=== PATIENT | male | born 1965 | race Caucasian/White ===

== ENCOUNTER 2018-11-26 14:20 | Emergency (ER) | payer OTHER ==
[~2018-11-26] VITALS: Ht 177.8 cm; Wt 104.3 kg
--- NOTE | 2018-11-26 14:21 | NUR ---
PT BIBA BLS TO ER BED 04
[2018-11-26 14:27] VITALS: BP 119/65
--- NOTE | 2018-11-26 14:30 | NUR ---
53 y male brought in by ems c/o etoh. pt was picked up from work place and found by security laying on ground. no injury noted. no loc. heavy etoh on breath. pt admits to have had been drinking throughout the day. slurred speech. denies pain. [id number]. cant recall the time, month, or year. now at bedside. vss at this time. bed is down, locked, bed rail x 1, ermd to see pt. hx---dm, htn, hyperlipidemia, etoh rx---???
--- NOTE | 2018-11-26 14:30 | NUR ---
AT BEDSIDE FOR PT EVALUATION
[2018-11-26] MEDS ORDERED: NACL 0.9% 1,000 ML IV ONE ×2 (14:35→16:45)
--- NOTE | 2018-11-26 14:38 | NUR ---
pt gait impaired due to etoh, unsteady. pt given urinal for urine sample.
--- NOTE | 2018-11-26 14:43 | NUR ---
LAB AT BEDSIDE
[2018-11-26 14:52] LABS: BASOPHILS # (AUTO) 0.1 K/uL (0.00-0.22); BASOPHILS % (AUTO) 1.2 % (0.0-2.0); EOSINOPHILS # (AUTO) 0.5 K/uL (0-0.4); EOSINOPHILS % (AUTO) 4.2 % (0.0-4.0); HEMATOCRIT 35.4 % (36-52); HEMOGLOBIN 11.5 g/dL (12.0-18.0); LYMPHOCYTES # (AUTO) 2.3 K/uL (2.0-11.5); LYMPHOCYTES % (AUTO) 21.2 % (20.5-51.1); MEAN CORPUSCULAR HEMOGLOBIN 29 pg (27-31); MEAN CORPUSCULAR HGB CONC 32 g/dL (33-37); MEAN CORPUSCULAR VOLUME 88.9 fL (80-94); MONOCYTES # (AUTO) 0.5 K/uL (0.8-1.0); MONOCYTES % (AUTO) 4.9 % (1.7-9.3); NEUTROPHILS # (AUTO) 7.3 K/uL (1.8-7.7); NEUTROPHILS % (AUTO) 68.5 % (42.2-75.2); PLATELET COUNT (AUTO) 362 K/uL (140-450); RED BLOOD CELL COUNT(AUTO) 3.99 MIL/uL (4.20-6.10); RED CELL DISTRIBUTION WIDTH 13.9 % (11.6-13.7); WHITE BLOOD COUNT (AUTO) 10.7 K/uL (4.8-10.8)
--- NOTE | 2018-11-26 14:53 | NUR ---
PT UNABLE TO GIVE URINE AT THIS TIME
[2018-11-26 14:59] LABS: ANION GAP 15.9 (8-16); CARBON DIOXIDE 24.1 mmol/L (21-32); CREATININE 1.9 mg/dL (0.7-1.3)
[2018-11-26 15:06] LABS: ALBUMIN 4.1 g/dL (3.4-5.0); TOTAL BILIRUBIN 0.2 mg/dL (0.0-1.0)
--- NOTE | 2018-11-26 15:35 | NUR ---
PT STILL UNABLE TO GIVE URINE
[2018-11-26 15:50] LABS: PROTHROMBIN TIME 8.8 secs (10.8-13.4)
--- NOTE | 2018-11-26 15:50 | NUR ---
NOTIFIED REGARDING NO URINE SAMPLE. PER DR, NO NEED TO STRAIGHT CATH PATIENT.
--- NOTE | 2018-11-26 16:57 | NUR ---
PER , START PT ON ANOTHER 1000ML NS AND THEN PT CAN GO HOME WITH [facility] JOCELYN RUNNING WIDE OPEN IN L AC. Addendum: 11/26/18 at 1707 by RANDELL COMPLETED BY GEORGIE WEEMS
[2018-11-26 17:33] VITALS: BP 114/76
--- NOTE | 2018-11-26 17:33 | NUR ---
Patient discharged with v/s stable. Written and verbal after care instructions given and explained TO . verbalized understanding. PT Ambulatory with steady gait WITH ASSISTANCE BY . All questions addressed prior to discharge. Advised to follow up with PMD. GIVEN COPY OF LAB RESULTS.
== END 2018-11-26 17:33 | disposition home or self-care (01) ==
LOC: MED 14:20
DX: F10.129 Alcohol abuse with intoxication, unspecified (principal); E78.5 Hyperlipidemia, unspecified; R79.1 Abnormal coagulation profile; I10 Essential (primary) hypertension; Y90.8 Blood alcohol level of 240 mg/100 ml or more
CPT/HCPCS: 36415; 80053; 82150; 83690; 85025; 85610; 85730; 99283; G0482; J7030